=== PATIENT | female | born 1990 | race Two or more races ===

== ENCOUNTER 2018-03-08 12:33 | Emergency (ER) | payer SELFPAY ==
[~2018-03-08] VITALS: Ht 167.6 cm; Wt 86.2 kg
[2018-03-08] MEDS ORDERED: ACETAMINOPHEN ES 500 MG TABLET ONE (13:26)
[2018-03-08] MEDS: ACETAMINOPHEN ES 500 MG TABLET PO ONE (13:27)
[2018-03-08 15:50] VITALS: BP 138/85
== END 2018-03-08 16:03 | disposition home or self-care (01) ==
LOC: ER 12:34
DX: S80.02XA Contusion of left knee, initial encounter (principal); S50.811A Abrasion of right forearm, initial encounter; S60.511A Abrasion of right hand, initial encounter; S60.811A Abrasion of right wrist, initial encounter; Z98.890 Other specified postprocedural states; V43.52XA Car driver injured in collision with other type car in traffic accident, initial encounter; Y93.89 Activity, other specified; Y92.410 Unspecified street and highway as the place of occurrence of the external cause; Y99.8 Other external cause status
CPT/HCPCS: 71046; 72110; 73140; 73564; 84703; 99285; A4606; Z7610